=== PATIENT | female | born 1985 | race Caucasian/White ===

== ENCOUNTER 2017-10-17 08:19 | Emergency (ER) | payer OTHER ==
[~2017-10-17] VITALS: Ht 160 cm; Wt 70.8 kg
[2017-10-17 08:22] VITALS: TEMP 36.5; Ht 160 cm; Wt 70.8 kg
[2017-10-17] MEDS ORDERED: ONDANSETRON INJ 2 MG/ML 2 ML VIAL IV STA (08:35)
[2017-10-17] MEDS ORDERED: MoRPHine SULFATE 4 MG/ML 1 ML CARP\\VIAL IV STA (08:35)
[2017-10-17] MEDS ORDERED: SODIUM CHLORIDE 0.9% 1000ML 1,000 ML IV STA (08:35)
[2017-10-17 08:47] LABS: BASO % 0.2 %; BASO ABS # 0.02 K/uL (0-0.2); EOS % 0.5 %; EOS ABS # 0.05 K/uL (0-0.5); HEMATOCRIT 40.9 % (37-47); IG# 0.03 K/uL (0.00-0.02); LYMPH % 10.6 %; LYMPH ABS # 1.17 K/uL (1.2-3.4); MEAN CELL VOLUME 94.9 fL (80-100); MEAN CORPUSCULAR HEMOGLOBIN 32.5 pg (25-34); MEAN CORPUSCULAR HGB CONC 34.2 g/dl (32-36); MEAN PLATELET VOLUME 12.7 fL (7.4-10.4); MONO % 5.4 %; PLATELET COUNT 174 K/uL (130-400); RED CELL DISTRIBUTION WIDTH CV 13.5 % (11.5-14.5); RED CELL DISTRIBUTION WIDTH SD 47.1 fL (36.4-46.3); WHITE BLOOD COUNT 11.07 K/uL (4.8-10.8)
[2017-10-17] MEDS ORDERED: BCPILLS PO (08:59)
[2017-10-17 09:03] LABS: ALBUMIN 3.7 gm/dl (3.4-5.0); CALCIUM 8.8 mg/dl (8.5-10.1); CREATININE 0.81 mg/dl (0.60-1.20); POTASSIUM 3.9 mmol/L (3.5-5.1)
[2017-10-17 09:06] LABS: TOTAL PROTEIN 7.1 gm/dl (6.4-8.2)
[2017-10-17] MEDS ORDERED: OPTIRAY 320 IV PRN (09:30)
--- NOTE | 2017-10-17 09:30 | EMERGENCY ROOM VISIT NOTE ---
History First contact with patient: 08:28 Chief Complaint: ABDOMINAL PAIN Stated Complaint: SHOOTING ABD PAIN Nursing Triage Summary: Pt reports mid abd pain, nausea and diarrhea. States pain started at 0300. History of Present Illness The patient is a 32 year old female who presents to the Emergency Room with complaints of "shooting abdominal pain". The patient states that she awoke today abruptly around 3 AM with epigastric abdominal pain that rates inferiorly. At times the pain as a 9/10. It is also additionally associated with nausea and diarrhea. She denies any chest pain, shortness of breath, recent abdominal surgeries or antibiotic use. She has never had this before. She notes that she is vomiting. She is also menstruating. Review of Systems A complete 10-point Review of Systems was discussed with the patient, with pertinent positives and negatives listed in the History of Present Illness. All remaining Review of Systems questions can be considered negative unless otherwise specified. Past Medical/Surgical History No pertinent Family History No pertinent Social History Smoking Status: Never Smoker Social History: Pt. just moved to the area. Current/Historical Medications Scheduled Control Pills ( Control Pills), 1 TAB PO DAILY Ondasetron Odt (Zofran Odt), 4 MG SL Q6H Scheduled PRN Oxycodone Ir (Roxicodone Ir), 1-2 TAB PO Q4H PRN for Pain Allergies Coded Allergies: No Known Allergies (Unverified , 10/17/17) Physical Exam Vital Signs Date Time Temp Pulse Resp B/P (MAP) Pulse Ox O2 Delivery O2 Flow Rate FiO2 10/17/17 12:06 72 16 122/69 98 10/17/17 10:41 62 18 111/65 99 Room Air 10/17/17 09:10 74 18 125/72 100 Room Air 10/17/17 08:22 36.5 72 18 123/75 97 Room Air Physical Exam VITAL SIGNS - Vital signs and nursing notes were reviewed. Stable. GENERAL - 32-year-old female appearing her stated age who is in no acute distress. Communicates well with provider and answers questions appropriately. SKIN - Without rashes. HEAD - NC/AT. EYES -Sclera anicteric. Palpebral conjunctiva pink and moist with no injection noted. EARS - No deformities of external structures noted on gross examination bilaterally. NOSE - Midline and without cyanosis. No epistaxis or purulent drainage noted. MOUTH/OROPHARYNX - Without perioral cyanosis. LUNGS - Chest wall symmetric without accessory muscle use, intercostals retractions, or central cyanosis. Normal vesicular breath sounds CTA B/L. No wheezes, rales, or rhonchi appreciated. CARDIAC - RRR with S1/S2. No murmur, rubs, or gallops appreciated. ABDOMEN - Abdominal contour normal without pulsations or visible masses. BS normoactive all four quadrants. Marked epigastric abd pain that is also just above the umbilicus. Medical Decision & Procedures ER Provider Diagnostic Interpretation: ABDOMINAL ULTRASOUND, RIGHT UPPER QUADRANT HISTORY: Epigastric and diffuse abd pain. COMPARISON: None. FINDINGS: The liver is sonographically normal. There is no biliary ductal dilatation. The common bile duct measures 3 mm in caliber. A small amount of sludge is noted within the gallbladder. Tiny echogenic foci within the gallbladder may reflect tiny stones. There is trace pericholecystic fluid. Gallbladder wall thickness is at the upper limits of normal. The pancreatic body is normal. The head and tail are obscured. There is no right hydronephrosis. IMPRESSION: 1. Gallbladder sludge and echogenic foci within the gallbladder which may reflect tiny stones. Trace pericholecystic fluid. No sonographic Coon sign. No significant gallbladder wall thickening. 2. No biliary ductal dilatation. Electronically signed by: Truong Mendoza M.D. 10/17/2017 9:57 AM Dictated Date/Time: 10/17/2017 9:53 AM ABDOMEN AND PELVIS CT WITH IV AND ORAL CONTRAST CT DOSE: 388.70 mGy.cm HISTORY: Acute generalized abdominal pain Epigastric and diffuse abd pain TECHNIQUE: Multiaxial CT images of the abdomen and pelvis were performed following the use of intravenous and oral contrast. A dose lowering technique was utilized adhering to the principles of ALARA. COMPARISON STUDY: Right upper quadrant ultrasound of same day. FINDINGS: Mild dependent subsegmental bibasilar atelectasis. There is no pneumatosis or pneumoperitoneum identified. Imaged inferior cardiac chambers are unremarkable. Mild periportal edema, likely secondary to overhydration. Liver appears unremarkable. Trace pericholecystic fluid is again seen with otherwise unremarkable appearance of the gallbladder. Spleen, pancreas and adrenal glands are within normal limits. Kidneys, ureters and urinary bladder are unremarkable. Tampon is noted within the vagina. Uterus and adnexa are unremarkable. Mild free pelvic fluid is seen within the cul-de-sac. Aorta is normal in course and caliber. No bulky adenopathy identified. There is no bowel obstruction identified. The appendix is contrast-filled and appears unremarkable the right lower quadrant. The terminal ileum is unremarkable. Mild wall thickening is noted within a few loops of ileum within the lower abdomen and pelvis, notably as seen on image 298 series 3 within the central mid pelvis. Trace perihepatic ascites. Soft tissues are unremarkable. Bones appear to be intact. IMPRESSION: 1. Mild wall thickening involves several loops of ileum within the lower abdomen and pelvis suggesting infectious or inflammatory enteritis without evidence of bowel obstruction. Trace abdominal pelvic ascites is likely reactive. 2. No evidence of acute appendicitis. 3. Mild periportal edema, likely secondary to overhydration. Electronically signed by: Alfredo Wade M.D. 10/17/2017 10:59 AM Dictated Date/Time: 10/17/2017 10:52 AM Laboratory Results 10/17/17 08:38 Red Blood Count 4.31, Mean Corpuscular Volume 94.9, Mean Corpuscular Hemoglobin 32.5, Mean Corpuscular Hemoglobin Concent 34.2, Mean Platelet Volume 12.7, Neutrophils (%) (Auto) 83.0, Lymphocytes (%) (Auto) 10.6, Monocytes (%) (Auto) 5.4, Eosinophils (%) (Auto) 0.5, Basophils (%) (Auto) 0.2, Neutrophils # (Auto) 9.20, Lymphocytes # (Auto) 1.17, Monocytes # (Auto) 0.60, Eosinophils # (Auto) 0.05, Basophils # (Auto) 0.02 10/17/17 08:38 Test 10/17/17 08:38 10/17/17 10:10 White Blood Count 11.07 K/uL (4.8-10.8) Red Blood Count 4.31 M/uL (4.2-5.4) Hemoglobin 14.0 g/dL (12.0-16.0) Hematocrit 40.9 % (37-47) Mean Corpuscular Volume 94.9 fL (80-100) Mean Corpuscular Hemoglobin 32.5 pg (25-34) Mean Corpuscular Hemoglobin Concent 34.2 g/dl (32-36) Platelet Count 174 K/uL (130-400) Mean Platelet Volume 12.7 fL (7.4-10.4) Neutrophils (%) (Auto) 83.0 % Lymphocytes (%) (Auto) 10.6 % Monocytes (%) (Auto) 5.4 % Eosinophils (%) (Auto) 0.5 % Basophils (%) (Auto) 0.2 % Neutrophils # (Auto) 9.20 K/uL (1.4-6.5) Lymphocytes # (Auto) 1.17 K/uL (1.2-3.4) Monocytes # (Auto) 0.60 K/uL (0.11-0.59) Eosinophils # (Auto) 0.05 K/uL (0-0.5) Basophils # (Auto) 0.02 K/uL (0-0.2) RDW Standard Deviation 47.1 fL (36.4-46.3) RDW Coefficient of Variation 13.5 % (11.5-14.5) Immature Granulocyte % (Auto) 0.3 % Immature Granulocyte # (Auto) 0.03 K/uL (0.00-0.02) Anion Gap 8.0 mmol/L (3-11) Est Creatinine Clear Calc Drug Dose 94.0 ml/min Estimated GFR () 111.4 Estimated GFR (Non- 96.1 BUN/Creatinine Ratio 15.5 (10-20) Calcium Level 8.8 mg/dl (8.5-10.1) Magnesium Level 2.0 mg/dl (1.8-2.4) Total Bilirubin 1.1 mg/dl (0.2-1) Aspartate Amino Transf (AST/SGOT) 14 U/L (15-37) Alanine Aminotransferase (ALT/SGPT) 17 U/L (12-78) Alkaline Phosphatase 40 U/L (45-117) Total Protein 7.1 gm/dl (6.4-8.2) Albumin 3.7 gm/dl (3.4-5.0) Globulin 3.4 gm/dl (2.5-4.0) Albumin/Globulin Ratio 1.1 (0.9-2) Lipase 140 U/L (73-393) Urine Color YELLOW Urine Appearance CLEAR (CLEAR) Urine pH 5.0 (4.5-7.5) Urine Specific Hobbs 1.009 (1.000-1.030) Urine Protein NEG (NEG) Urine Glucose (UA) NEG (NEG) Urine Ketones NEG (NEG) Urine Occult Blood NEG (NEG) Urine Nitrite NEG (NEG) Urine Bilirubin NEG (NEG) Urine Urobilinogen NEG (NEG) Urine Leukocyte Esterase NEG (NEG) Urine Test NEG (NEG) Medications Administered Medications (Trade) Dose Ordered Sig/Nahomy Route Start Time Stop Time Status Last Admin Dose Admin Sodium Chloride 1,000 ml @ 999 mls/hr Q1H1M STAT IV 10/17/17 08:35 10/17/17 09:35 DC 10/17/17 09:06 999 MLS/HR Ondansetron HCl (Zofran Inj) 4 mg NOW STAT IV 10/17/17 08:35 10/17/17 08:38 DC 10/17/17 09:05 4 MG Morphine Sulfate (MoRPHine SULFATE INJ) 4 mg NOW STAT IV 10/17/17 08:35 10/17/17 08:38 DC 10/17/17 09:05 4 MG Oxycodone HCl (Roxicodone Immediate Rel Tab) 5 mg NOW STAT PO 10/17/17 11:26 10/17/17 11:27 DC 10/17/17 11:57 5 MG Medical Decision Patient was seen and evaluated as above. She presents to us today with abdominal pain that is diffuse but worse in the epigastric region. She is nontoxic on exam but does cry with mild palpation of the epigastric region. Right upper quadrant ultrasound was obtained. Gallbladder sludge, and trace pericholecystic fluid was noted. Decision was made to obtain a CT scan of the patient's abdomen and pelvis for further management as the pain was also inferiorly. This reveals no enteritis which is more consistent with the patient 's presentation of diarrhea and abdominal pain with some nausea. It is important note that the pain is not worse in the right upper quadrant. I informed her upon today's findings and she is to follow-up with her family doctor. She notes that she just moved to the area and is attempting to find a family doctor. She is to return with worsening of her symptoms. There is slight leukocytosis of 11.07. No concerning anemia. Patient's metabolic panel reveals no evidence of kidney or liver failure. Her bilirubin is slightly elevated at 1.1. No hepatitis noted. Lipase normal. Urine negative. Urine test negative. The patient was educated upon management, had questions answered prior to discharge, and was discharged home in good condition. While here she was given morphine for pain and Zofran for nausea and she'll be discharged home with oxycodone and Zofran for pain. She is to utilize a bland diet. Case was discussed with the attending physician In the evaluation and treatment of this patient the following differential diagnoses were entertained: Acute abdomen, appendicitis, acute cholecystitis, pancreatitis, gastroenteritis, gastritis, ovarian torsion, among others. Impression Primary Impression: Acute gastroenteritis Departure Information Dispostion Home / Self-Care Condition GOOD Prescriptions Ondasetron Odt (ZOFRAN ODT) 4 Mg Tab 4 MG SL Q6H for Nausea, #15 TAB Prov: Twan Sun PA-C 10/17/17 Oxycodone Ir (Roxicodone Ir) 5 Mg Tab 1-2 TAB PO Q4H Y for Pain, #15 TAB For Initial Treatment Prov: Twan Sun PA-C 10/17/17 Referrals No Doctor, Assigned (PCP) Patient Instructions My [facility] Additional Instructions You have been treated in the Emergency Department your Abdominal Pain. Laboratory results and imaging studies have ruled out any emergent causes for your abdominal pain which would warrant admission or surgery. You have been prescribed Oxy IR to be used for pain control. This is a narcotic medication. You cannot drive or consume alcohol while on this medicine. This medicine should only be used for pain that cannot be controlled with over-the- counter pain medicines. You have been prescribed Zofran to be used for any nausea or vomiting. Take as prescribed. For pain control, you can use the following [id number] medicines - Regular strength (325mg/tab) Tylenol (acetaminophen) 2 tabs every 4-6 hours as needed. Do not exceed 12 tablets in a 24 hour period. Avoid taking more than 3 grams (3000 mg) of Tylenol per day. This includes any other sources of acetaminophen you may take on a regular basis. - Regular strength (200 mg/tab) Advil (ibuprofen) 1-2 tabs every 4-6 hours as needed. Do not exceed a dose of 3200 mg per day. Drink plenty of water and stay well hydrated. As with any trip to the Emergency Department, you should follow-up with your Primary Care Provider from today's visit. (please call insurance card to identity primary care doctors in the area to follow up) Return to the emergency department if your symptoms persist despite treatment plan outlined above or if the following symptoms occur: increased fevers, chills , worsening nausea/vomiting, blood in your stool or urine. ABDOMEN AND PELVIS CT WITH IV AND ORAL CONTRAST CT DOSE: 388.70 mGy.cm HISTORY: Acute generalized abdominal pain Epigastric and diffuse abd pain TECHNIQUE: Multiaxial CT images of the abdomen and pelvis were performed following the use of intravenous and oral contrast. A dose lowering technique was utilized adhering to the principles of ALARA. COMPARISON STUDY: Right upper quadrant ultrasound of same day. FINDINGS: Mild dependent subsegmental bibasilar atelectasis. There is no pneumatosis or pneumoperitoneum identified. Imaged inferior cardiac chambers are unremarkable. Mild periportal edema, likely secondary to overhydration. Liver appears unremarkable. Trace pericholecystic fluid is again seen with otherwise unremarkable appearance of the gallbladder. Spleen, pancreas and adrenal glands are within normal limits. Kidneys, ureters and urinary bladder are unremarkable. Tampon is noted within the vagina. Uterus and adnexa are unremarkable. Mild free pelvic fluid is seen within the cul-de-sac. Aorta is normal in course and caliber. No bulky adenopathy identified. There is no bowel obstruction identified. The appendix is contrast-filled and appears unremarkable the right lower quadrant. The terminal ileum is unremarkable. Mild wall thickening is noted within a few loops of ileum within the lower abdomen and pelvis, notably as seen on image 298 series 3 within the central mid pelvis. Trace perihepatic ascites. Soft tissues are unremarkable. Bones appear to be intact. IMPRESSION: 1. Mild wall thickening involves several loops of ileum within the lower abdomen and pelvis suggesting infectious or inflammatory enteritis without evidence of bowel obstruction. Trace abdominal pelvic ascites is likely reactive. 2. No evidence of acute appendicitis. 3. Mild periportal edema, likely secondary to overhydration. ABDOMINAL ULTRASOUND, RIGHT UPPER QUADRANT HISTORY: Epigastric and diffuse abd pain. COMPARISON: None. FINDINGS: The liver is sonographically normal. There is no biliary ductal dilatation. The common bile duct measures 3 mm in caliber. A small amount of sludge is noted within the gallbladder. Tiny echogenic foci within the gallbladder may reflect tiny stones. There is trace pericholecystic fluid. Gallbladder wall thickness is at the upper limits of normal. The pancreatic body is normal. The head and tail are obscured. There is no right hydronephrosis.
--- NOTE | 2017-10-17 09:58 | DIAGNOSTIC IMAGING REPORT ---
ABDOMINAL ULTRASOUND, RIGHT UPPER QUADRANT HISTORY: Epigastric and diffuse abd pain. COMPARISON: None. FINDINGS: The liver is sonographically normal. There is no biliary ductal dilatation. The common bile duct measures 3 mm in caliber. A small amount of sludge is noted within the gallbladder. Tiny echogenic foci within the gallbladder may reflect tiny stones. There is trace pericholecystic fluid. Gallbladder wall thickness is at the upper limits of normal. The pancreatic body is normal. The head and tail are obscured. There is no right hydronephrosis. IMPRESSION: 1. Gallbladder sludge and echogenic foci within the gallbladder which may reflect tiny stones. Trace pericholecystic fluid. No sonographic Coon sign. No significant gallbladder wall thickening. 2. No biliary ductal dilatation. Electronically signed by: Truong Mendoza M.D. 10/17/2017 9:57 AM Dictated Date/Time: 10/17/2017 9:53 AM
--- NOTE | 2017-10-17 11:00 | DIAGNOSTIC IMAGING REPORT ---
ABDOMEN AND PELVIS CT WITH IV AND ORAL CONTRAST CT DOSE: 388.70 mGy.cm HISTORY: Acute generalized abdominal pain Epigastric and diffuse abd pain TECHNIQUE: Multiaxial CT images of the abdomen and pelvis were performed following the use of intravenous and oral contrast. A dose lowering technique was utilized adhering to the principles of ALARA. COMPARISON STUDY: Right upper quadrant ultrasound of same day. FINDINGS: Mild dependent subsegmental bibasilar atelectasis. There is no pneumatosis or pneumoperitoneum identified. Imaged inferior cardiac chambers are unremarkable. Mild periportal edema, likely secondary to overhydration. Liver appears unremarkable. Trace pericholecystic fluid is again seen with otherwise unremarkable appearance of the gallbladder. Spleen, pancreas and adrenal glands are within normal limits. Kidneys, ureters and urinary bladder are unremarkable. Tampon is noted within the vagina. Uterus and adnexa are unremarkable. Mild free pelvic fluid is seen within the cul-de-sac. Aorta is normal in course and caliber. No bulky adenopathy identified. There is no bowel obstruction identified. The appendix is contrast-filled and appears unremarkable the right lower quadrant. The terminal ileum is unremarkable. Mild wall thickening is noted within a few loops of ileum within the lower abdomen and pelvis, notably as seen on image 298 series 3 within the central mid pelvis. Trace perihepatic ascites. Soft tissues are unremarkable. Bones appear to be intact. IMPRESSION: 1. Mild wall thickening involves several loops of ileum within the lower abdomen and pelvis suggesting infectious or inflammatory enteritis without evidence of bowel obstruction. Trace abdominal pelvic ascites is likely reactive. 2. No evidence of acute appendicitis. 3. Mild periportal edema, likely secondary to overhydration. Electronically signed by: Alfredo Wade M.D. 10/17/2017 10:59 AM Dictated Date/Time: 10/17/2017 10:52 AM
[2017-10-17] MEDS ORDERED: OXYCODONE HCL IR 5 MG TAB (IMMEDIATE RELEASE) PO STA (11:26)
[2017-10-17] MEDS ORDERED: OXYC1TAB3 PO (11:29)
[2017-10-17] MEDS ORDERED: ONDA4TAB10 SL (11:29)
[2017-10-17 12:06] VITALS: BP 122/69; PULSE 72; O2SAT 98
== END 2017-10-17 12:07 | disposition home or self-care (01) ==
LOC: C.EDB 08:21 → C.EDA 12:07
DX: K52.9 Noninfective gastroenteritis and colitis, unspecified (principal); Z79.3 Long term (current) use of hormonal contraceptives

== ENCOUNTER 2019-07-03 07:34 | Inpatient (IN) ==
[2019-07-03] MEDS ORDERED: miSOPROStoL 50 MCG TAB PO ONE (08:49)
[2019-07-03] MEDS ORDERED: PENICILLIN G POTASSIUM 6 MU in DEXTROSE 5% 250 ML IV STA (08:49)
[2019-07-03] MEDS ORDERED: OXYTOCIN 30 UNITS/500 ML BAG IV PRN (08:49)
[2019-07-03 09:04] LABS: Hematocrit (blood only) 36.7 % (37-47); Hemoglobin 12.4 g/dL (12.0-16.0); Mean Corpuscular Hemoglobin 31.2 pg (25-34); Mean Corpuscular Volume 92.2 fL (80-100); Mean Platelet Volume 13.8 fL (7.4-10.4); Platelet Count 155 K/uL (130-400); RDW Coefficient of Variation 13.7 % (11.5-14.5); RDW Standard Deviation 45.8 fL (36.4-46.3); Red Blood Count 3.98 M/uL (4.2-5.4); White Blood Count 12.64 K/uL (4.8-10.8)
[2019-07-03] MEDS: LACTATED RINGER'S 1,000 ML IV PRN (09:13)
[2019-07-03 09:18] LABS: Mean Corpuscular Hgb Conc 33.8 g/dL (32-36)
[2019-07-03] MEDS ORDERED: DINOPROSTONE 10 MG INSERT PV ONE (16:50)
--- NOTE | 2019-07-03 18:52 | Obstetrical Progress Note ---
Date of Service July 03, 2019 Subjective Pt doing well Induction for post dates FHR; CAT1 Ctx 2-4 mins VE ft/50/post/-3 Cervidil placed in vagina Results & Data Vital Signs (Past 12 Hours) Vital Signs Temp Pulse Resp BP 07/03/19 15:03 78 121/68 07/03/19 15:02 37.3 C 20 07/03/19 11:28 36.7 C 66 20 114/63 07/03/19 07:44 37.0 C 88 20 119/67
[2019-07-03] MEDS ORDERED: BUTORPHANOL TARTRATE 1 MG/ML VIAL IV PRN (22:12)
--- NOTE | 2019-07-04 07:25 | Labor Progress Brief Note ---
Date of Service July 04, 2019 Results & Data Vital Signs (Past 12 Hours) Vital Signs Temp Pulse Resp BP 07/04/19 03:27 36.9 C 77 18 110/63 07/03/19 22:55 36.9 C 18 07/03/19 22:36 69 117/64
--- NOTE | 2019-07-04 07:27 | Obstetrical Progress Note ---
Date of Service July 04, 2019 Subjective Pt doing well Induction for post dates FHR; CAT 1 Cts 2-4mins Cervidil removed VE;/-3 EFW; 7-8lbs will start Pitocin augmentation Results & Data Vital Signs (Past 12 Hours) Vital Signs Temp Pulse Resp BP 07/04/19 03:27 36.9 C 77 18 110/63 07/03/19 22:55 36.9 C 18 07/03/19 22:36 69 117/64
[2019-07-04] MEDS ORDERED: OXYTOCIN 30 UNITS/500 ML BAG IV PRN (07:28)
[2019-07-04] MEDS: LACTATED RINGER'S 1,000 ML IV PRN ×3 (08:43→20:07)
[2019-07-04] MEDS ORDERED: BUPIVACAINE 0.25% 30 ML VIAL ONE ×2 (11:33→18:17)
[2019-07-04] MEDS ORDERED: fentaNYL citrate 100 MCG/2 ML VIAL ONE ×2 (11:33→21:46)
[2019-07-04] MEDS ORDERED: ePHEDrine sulfate 50 MG/ML AMP ONE (11:33)
[2019-07-04] MEDS ORDERED: fentaNYL 2MCG/ML ROPIV 1.25MG/ML 100 ML BAG EPI ONE (11:34)
[2019-07-04] MEDS ORDERED: NALOXONE HCL 1 MG in SODIUM CHLORIDE 0.9% 1000ML 1,000 ML IV PRN (11:57)
[2019-07-04] MEDS ORDERED: DiphenhydrAMINE HCL 50 MG/ML VIAL IV PRN (11:57)
[2019-07-04] MEDS ORDERED: NALOXONE HCL 0.4 MG/1 ML VIAL/CARP IV PRN (11:57)
[2019-07-04] MEDS ORDERED: NALBUPHINE HCL INJ 10 MG/ML AMP IV PRN (11:57)
[2019-07-04] MEDS ORDERED: ePHEDrine sulfate 50 MG/ML AMP IV PRN (11:57)
[2019-07-04] MEDS ORDERED: PENICILLIN G POTASSIUM 6 MU in DEXTROSE 5% 250 ML IV STA (12:01)
--- NOTE | 2019-07-04 12:03 | Anesthesiology Consultation ---
Date of Service July 04, 2019 Assessment & Plan Chart Review Chart Review: Patient NOT seen in Pre Admission Testing and Acceptable Risk for Labor Epidural Consults Requested none ASA ASA2 Proposed Anesthesia Anesthesia Type: Labor Epidural and CSE Risk / Benefits Reviewed With: PT / POA / Parent / Guardian, Accepts Plan and Informed Consent Obtained History Height/Weight Height: 5 ft 3 in Weight: 85.275 kg Allergies Allergy/AdvReac Type Severity Reaction Status Date / Time No Known Allergies Allergy Verified 06/14/19 19:22 Medications Home Medications Medication Instructions Recorded Confirmed Last Taken vit-iron fum-folic ac 1 tab PO DAILY 04/23/19 07/03/19 07/02/19 08:00 [ Vitamin] Active Medications Generic Name Dose Route Start Last Admin Trade Name Freq PRN Reason Stop Dose Admin Butorphanol Tartrate 1 mg 07/03/19 22:12 07/03/19 22:26 Stadol IV 08/02/19 22:11 1 mg Q4 PRN Administration Pain Lactated Ringer's 1,000 mls @ 125 mls/hr 07/03/19 08:49 07/04/19 11:28 Lr IV 07/05/19 08:48 999 mls/hr .Q8H PRN Infusion L&D Protocol Protocol Oxytocin 30 units in 500 mls @ 10 mls/hr 07/04/19 07:28 07/04/19 11:20 Pitocin IV 07/06/19 07:27 0.6 units/hr .Q24H PRN 10 mls/hr Labor Induction/Augmentation Titration Protocol 0.6 UNITS/HR NPO Date Last Intake of Fluids: 07/04/19 Time Last Intake of Fluids: 08:00 Date Last Intake of Solids: 07/04/19 Time Last Intake of Solids: 08:00 Past Medical History Medical History 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 [place] teeth removed Exercise / Class Metabolic Activity II 4-5 Yardwork/Stairs/Walk up hill Past Surgical History Surgical History H/O breast surgery H/O knee surgery Past Anesthesia History No Hx of Anesthesia Complications and No Family Hx of Anesthesia Complications History of PONV No Hx of PONV and No Hx of Motion Sickness Social History no chest pain or sob Smoking Status: Never smoker Do You Dip or Chew Tobacco: No Hx Alcohol Use: No Hx Substance Use: No Review of Systems no chest pain or sob Physical Exam Vital Signs Last Vital Signs Temp 37.1 C 07/04/19 07:33 Pulse 95 H 07/04/19 12:00 Resp 20 07/04/19 07:33 BP 156/88 H 07/04/19 12:00 Pulse Ox 97 07/04/19 12:00 ENMT Mouth: no TMJ abnormality Thyromental Distance: > or= 3.5 Finger Breadths Mallampati Class: II Neck normal visual inspection Respiratory normal respiratory effort Auscultation: lungs clear to auscultation bilaterally Cardiovascular Rate/Rhythm: regular rate and regular rhythm Musculoskeletal Spine: normal cervical ROM Neurologic moves all extremities Psychiatric Orientation: alert and oriented x 3 Testing Laboratory Results 07/03/19 08:56
[2019-07-04] MEDS: PENICILLIN G POTASSIUM 3 MU in DEXTROSE 5% 100 ML IV PRN ×2 (16:41→20:48)
[2019-07-04] MEDS: fentaNYL 2MCG/ML ROPIV 1.25MG/ML 100 ML BAG EPI PRN ×2 (16:50→18:25)
[2019-07-04] MEDS ORDERED: Nursing to Pharmacy Communication ONE ×2 (17:00→18:50)
[2019-07-04] MEDS: ONDANSETRON INJ 2 MG/ML 2 ML VIAL IV PRN ×2 (18:01→20:14)
[2019-07-04] MEDS ORDERED: fentaNYL 2MCG/ML ROPIV 1.25MG/ML 100 ML BAG EPI PRN (18:28)
[2019-07-05] MEDS ORDERED: ONDANSETRON INJ 2 MG/ML 2 ML VIAL IV PRN
[2019-07-05] MEDS: PENICILLIN G POTASSIUM 3 MU in DEXTROSE 5% 100 ML IV PRN (00:46)
[2019-07-05] MEDS ORDERED: METHYLERGONOVINE MALEATE 0.2 MG/ML AMP ONE (01:56)
[2019-07-05] MEDS ORDERED: BENZOCAINE 20% AER SPR 82.5 GM CAN EXT PRN (02:08)
[2019-07-05] MEDS ORDERED: DIPHTHERIA/TETANUS/PERTUSSIS 0.5 ML SYR/VIAL IM ONE (02:08)
[2019-07-05] MEDS ORDERED: SUPERCREAM 0.870% 15 GM JAR EXT PRN (02:08)
[2019-07-05] MEDS ORDERED: METHYLERGONOVINE MALEATE 0.2 MG/ML AMP IM ONE (02:08)
[2019-07-05] MEDS ORDERED: OXYTOCIN 30 UNITS/500 ML BAG IV PRN (02:08)
[2019-07-05] MEDS ORDERED: BISACODYL 10 MG SUPP PR PRN (02:08)
[2019-07-05] MEDS ORDERED: HYDROCORTISONE ACETATE 25 MG SUPP PR PRN (02:08)
[2019-07-05] MEDS ORDERED: ACETAMINOPHEN W/CODEINE #3 1 TAB PO PRN (02:08)
[2019-07-05] MEDS ORDERED: OXYCODONE/ACETAMINOPHEN 5mg/325mg TAB PO PRN (02:08)
[2019-07-05] MEDS: IBUPROFEN 600 MG TAB PO PRN ×3 (02:43→21:14)
[2019-07-05] MEDS: ACETAMINOPHEN 325 MG TAB PO PRN ×2 (02:57→09:42)
--- NOTE | 2019-07-05 03:12 | Operative Report ---
DATE OF OPERATION: 07/05/2019 Ms. Julian is a 1, para 1. Blood type is O positive, group B strep positive. She was admitted for induction of labor at 40 weeks 5 days, started out with p.o. Cytotec. Then, she was given a Cervidil tape. Following morning, tape was removed and she was started on Pitocin. Pitocin was increased, so she got good regular contractions. Membranes ruptured spontaneously during the exam. She continued to increase the Pitocin, turned back a little bit towards the end because of some variable decelerations. She eventually pushed out a live female infant via direct occiput anterior position over an intact perineum. Thick meconium was noted at the time of delivery. Infant was suctioned thoroughly through the mouth and the nose. Shoulders were delivered without difficulty. Cord was clamped, cut by the father. Cord blood was taken. With IV Pitocin running, the placenta was removed intact. Membranes were heavily stained with meconium. 0.2 mg of Methergine were given. Uterus contracted nicely. Inspection of the perineum revealed a first-degree laceration. A heavy Vicryl was used to approximate the vaginal mucosa out to beyond the hymenal ring. A deep suture was used to approximate the bulbocavernosus muscle. Following this, hemostasis was good. Sponges were removed. Vag exam including rectovaginal examination revealed no hematoma formation or sponges in the vagina. The patient tolerated the procedure well. Apgars will be deferred to the nurses. I attest to the content of the Intraoperative Record and any orders documented therein. Any exception s are noted below.
[2019-07-05] MEDS: DOCUSATE SODIUM 100 MG CAP PO SCH ×2 (08:28→20:54)
[2019-07-05] MEDS: PRENATAL VITAMIN 1 TAB PO SCH (08:28)
[2019-07-05] MEDS: FERROUS SULFATE 325 MG TAB PO SCH (08:28)
--- NOTE | 2019-07-05 10:28 | Anesthesia Procedure Note ---
Date of Service July 05, 2019 Anesthesia Post Epidural Note Vital Signs Vital Signs: Temp Pulse Resp BP Pulse Ox 36.7 C 73 18 118/73 98 07/05/19 08:00 07/05/19 08:00 07/05/19 08:00 07/05/19 08:00 07/05/19 08:00 Pain Intensity Abdomen: Pain Intensity: 6 Notes Mental Status: alert / awake / arousable Nausea / Vomiting: adequately controlled Pain: adequately controlled Airway Patency, RR, SpO2: stable & adequate BP & HR: stable & adequate Hydration State: stable & adequate Neuraxial Anesthesia: was administered and sensory block is resolving Anesthetic Complications: no major complications apparent and Pt Satisfied with anesthetic care Epidural: Removed without complications and With tip intact
--- NOTE | 2019-07-05 10:34 | Obstetrical Progress Note ---
Date of Service July 05, 2019 Subjective PPD#0 doing well exhausted some nasal congestion Physical Exam Constitutional: WD/WN, vitals as above comfortable no edema neg Yolanda's Fundus firm will continue care as ordered Results & Data Vital Signs (Past 12 Hours) Vital Signs Temp Pulse Pulse Resp BP BP Pulse Ox 07/05/19 08:00 36.7 C 73 18 118/73 98 07/05/19 06:20 36.9 C 18 143/84 H 07/05/19 04:30 36.5 C 18 07/05/19 04:20 66 120/58 L 07/05/19 04:05 62 18 130/66 07/05/19 03:50 71 136/73 07/05/19 03:35 71 16 141/70 H 07/05/19 03:21 74 130/80 07/05/19 03:05 82 16 138/77 07/05/19 02:50 77 18 139/72 07/05/19 02:35 85 18 139/68 07/05/19 02:20 91 H 18 137/67 07/05/19 02:11 98 H 96 07/05/19 02:06 92 H 114/87 96 07/05/19 02:05 36.8 C 20 07/05/19 02:01 101 H 96 07/05/19 01:56 89 139/70 98 07/05/19 01:51 121 H 18 99 07/05/19 01:47 94 H 86 L 07/05/19 01:46 82 98 07/05/19 01:41 85 140/67 98 07/05/19 01:36 92 H 99 07/05/19 01:31 96 H 98 07/05/19 01:30 18 07/05/19 01:28 88 123/72 07/05/19 01:27 119 H 91 07/05/19 01:26 79 97 07/05/19 01:21 97 H 99 07/05/19 01:16 84 99 07/05/19 01:13 107 H 88 L 07/05/19 01:12 81 136/76 07/05/19 01:11 87 99 07/05/19 01:06 83 97 07/05/19 01:03 93 H 92 07/05/19 01:01 79 95 07/05/19 01:00 36.9 C 18 07/05/19 00:56 79 142/63 H 98 07/05/19 00:51 104 H 97 07/05/19 00:47 102 H 93 07/05/19 00:46 89 97 07/05/19 00:41 106 H 130/85 86 L 07/05/19 00:36 79 97 07/05/19 00:31 81 97 07/05/19 00:30 20 07/05/19 00:27 80 121/81 07/05/19 00:26 88 98 07/05/19 00:21 78 97 07/05/19 00:20 104 H 88 L 07/05/19 00:16 107 H 96 07/05/19 00:12 76 140/67 07/05/19 00:11 85 98 07/05/19 00:06 80 97 07/05/19 00:00 107 H 20 92 07/04/19 23:56 73 127/62 07/04/19 23:55 80 98 07/04/19 23:50 80 98 07/04/19 23:45 78 96 07/04/19 23:42 123 H 91 07/04/19 23:41 94 H 124/88 07/04/19 23:40 79 97 07/04/19 23:37 92 H 90 07/04/19 23:35 79 96 07/04/19 23:32 91 H 93 07/04/19 23:30 83 18 94 07/04/19 23:27 78 137/65 07/04/19 23:26 104 H 91 07/04/19 23:25 81 96 07/04/19 23:20 76 96 07/04/19 23:15 81 95 07/04/19 23:13 80 121/61 07/04/19 23:10 89 95 07/04/19 23:07 93 H 92 07/04/19 23:05 90 96 07/04/19 23:00 37.5 C 81 18 95 07/04/19 22:57 72 134/62 07/04/19 22:55 85 94 07/04/19 22:50 91 H 95 07/04/19 22:49 101 H 88 L 07/04/19 22:45 80 20 95 07/04/19 22:43 87 89 L 07/04/19 22:42 79 125/58 L 07/04/19 22:40 96 H 95 07/04/19 22:36 81 91 07/04/19 22:35 91 H 96
[2019-07-05] MEDS ORDERED: PSEUDOEPHEDRINE HCL 30 MG TAB PO PRN (10:39)
[2019-07-05] MEDS ORDERED: PSEUDOEPHEDRINE HCL 30 MG TAB PO STA (10:39)
[2019-07-06 06:40] LABS: Hematocrit (blood only) 31.8 % (37-47); Hemoglobin 10.9 g/dL (12.0-16.0); Mean Corpuscular Hemoglobin 31.5 pg (25-34); Mean Corpuscular Hgb Conc 34.3 g/dL (32-36); Mean Corpuscular Volume 91.9 fL (80-100); Mean Platelet Volume 12.7 fL (7.4-10.4); Platelet Count 138 K/uL (130-400); RDW Standard Deviation 45.9 fL (36.4-46.3); Red Blood Count 3.46 M/uL (4.2-5.4); White Blood Count 21.19 K/uL (4.8-10.8)
[2019-07-06] MEDS: DOCUSATE SODIUM 100 MG CAP PO SCH ×2 (08:36→20:15)
[2019-07-06] MEDS: PRENATAL VITAMIN 1 TAB PO SCH (08:36)
[2019-07-06] MEDS: FERROUS SULFATE 325 MG TAB PO SCH (08:36)
[2019-07-06] MEDS: IBUPROFEN 600 MG TAB PO PRN (08:41)
--- NOTE | 2019-07-06 11:40 | Obstetrical Progress Note ---
Date of Service July 06, 2019 Subjective Patient is seen and examined. She feels well, no complaints. Ambulating without dizziness Voiding without difficulty Tolerating regular diet with out N&V Bleeding is minimal No fever/ chills/ CP/ SOB/ N&V/ Leg pain Breast feeding without problems Vital Signs Temp Pulse Resp BP BP Pulse Ox 07/06/19 08:00 36.7 C 76 18 117/78 98 07/05/19 23:35 36.6 C 76 17 117/69 98 07/05/19 20:50 36.5 C 76 16 111/70 99 07/05/19 15:25 36.5 C 80 18 108/67 97 07/05/19 12:00 36.5 C 81 18 110/69 97 07/06/19 Range/Units 06:29 WBC 21.19 H (4.8-10.8) K/uL RBC 3.46 L (4.2-5.4) M/uL Hgb 10.9 L (12.0-16.0) g/dL Hct 31.8 L (37-47) % MCV 91.9 (80-100) fL MCH 31.5 (25-34) pg MCHC 34.3 (32-36) g/dL RDW Std Deviation 45.9 (36.4-46.3) fL RDW Coeff of Cathryn 14.0 (11.5-14.5) % Plt Count 138 (130-400) K/uL MPV 12.7 H (7.4-10.4) fL PE: General: Alert, orientedx3, NAD Abd: soft, NT, fundus firm, below Umbilicus Perineum intact, Lochia rubra minimal Ext; NT, 2+/2+ pitting edema, homans sign negative AP: 34 yo s/p , ppd# 1 VSS Afebrile doing well Elevated WBCC, no s/s infection Repeat labs in am Continue routine care All questions were answered D/C home tomorrow Results & Data Vital Signs (Past 12 Hours) Vital Signs Temp Pulse Resp BP Pulse Ox 07/06/19 08:00 36.7 C 76 18 117/78 98
[2019-07-06] MEDS ORDERED: MAGNESIUM HYDROXIDE SUSP 30 ML UDC PO ONE (12:03)
[2019-07-06] MEDS ORDERED: BISACODYL 5 MG TABEC PO SCH (20:00)
[2019-07-07] MEDS: IBUPROFEN 600 MG TAB PO PRN ×2 (00:19→08:13)
[2019-07-07 07:12] LABS: Basophils # (auto) 0.04 K/uL (0-0.2); Basophils % (auto) 0.3 %; Eosinophils # (auto) 0.27 K/uL (0-0.5); Eosinophils % (auto) 2.2 %; Hematocrit (blood only) 30.5 % (37-47); Hemoglobin 10.4 g/dL (12.0-16.0); Immature Granulocytes # (auto) 0.06 K/uL (0.00-0.02); Immature Granulocytes % (auto) 0.5 %; Lymphocytes # (auto) 3.46 K/uL (1.2-3.4); Lymphocytes % (auto) 27.6 %; Mean Corpuscular Hemoglobin 31.2 pg (25-34); Mean Corpuscular Hgb Conc 34.1 g/dL (32-36); Mean Corpuscular Volume 91.6 fL (80-100); Mean Platelet Volume 12.6 fL (7.4-10.4); Monocytes # (auto) 0.82 K/uL (0.11-0.59); Monocytes % (auto) 6.5 %; Neutrophils # (auto) 7.88 K/uL (1.4-6.5); Neutrophils % (auto) 62.9 %; Platelet Count 160 K/uL (130-400); RDW Standard Deviation 46.3 fL (36.4-46.3); Red Blood Count 3.33 M/uL (4.2-5.4); White Blood Count 12.53 K/uL (4.8-10.8)
--- NOTE | 2019-07-07 07:53 | Obstetrical Progress Note ---
Date of Service July 07, 2019 Physical Exam Physical Exam: abdomen soft and non tender vaginal bleeding scant to moderate hgb 10.4 no calf tenderness ambulating well Results & Data Vital Signs (Past 12 Hours) Vital Signs Temp Pulse Resp BP 07/07/19 00:25 36.7 C 67 18 107/67
[2019-07-07] MEDS: FERROUS SULFATE 325 MG TAB PO SCH (08:12)
[2019-07-07] MEDS: DOCUSATE SODIUM 100 MG CAP PO SCH (08:12)
[2019-07-07] MEDS: PRENATAL VITAMIN 1 TAB PO SCH (08:12)
== END 2019-07-07 14:28 | disposition home or self-care (01) | DRG 833 ==
LOC: 4S1 07:34 → 4S2 07-05 04:58

== ENCOUNTER 2021-11-13 07:29 | Inpatient (IN) ==
[2021-11-13] MEDS ORDERED: AZITHROMYCIN 500 MG in DEXTROSE 5% 250 ML IV STA (08:05)
[2021-11-13] MEDS ORDERED: NALOXONE HCL 0.08 MG in SYRINGE 1.8 ML IV PRN (08:15)
[2021-11-13] MEDS ORDERED: HYDROmorphone INJ 0.5 MG/0.5 ML SYR IV PRN (08:15)
[2021-11-13] MEDS ORDERED: NALOXONE HCL 0.4 MG/1 ML VIAL/CARP IV PRN (08:15)
[2021-11-13] MEDS ORDERED: diphenhydrAMINE 50 MG/ML VIAL IV PRN (08:15)
[2021-11-13] MEDS ORDERED: NALOXONE HCL 1 MG in SODIUM CHLORIDE 0.9% 1000ML 1,000 ML IV PRN (08:15)
[2021-11-13] MEDS ORDERED: DC INTRASPINAL MORPHINE SCH (08:15)
[2021-11-13] MEDS ORDERED: LACTATED RINGER'S 500 ML IV PRN (08:15)
[2021-11-13] MEDS ORDERED: LACTATED RINGER'S 1,000 ML IV SCH ×2 (08:15→11:16)
[2021-11-13] MEDS ORDERED: ceFAZolin 2000MG 2,000 MG/15 ML SYR IV ONE (08:15)
[2021-11-13] MEDS ORDERED: ePHEDrine sulfate 50 MG/ML AMP IV PRN (08:15)
[2021-11-13] MEDS ORDERED: SODIUM CHLORIDE 0.9% 1000ML 1,000 ML IV SCH (08:15)
[2021-11-13] MEDS ORDERED: NALBUPHINE HCL INJ 10 MG/ML AMP IV PRN (08:15)
[2021-11-13] MEDS ORDERED: NO NARCOTICS OR SEDATIVES SCH (08:15)
[2021-11-13] MEDS ORDERED: MoRPHine SULFATE PF 1 MG/ML 10 ML AMP/VIAL INT SPINAL ONE (08:15)
--- NOTE | 2021-11-13 08:16 | History & Physical Report ---
Date of Service November 13, 2021 Assessment & Plan (1) Breech presentation: (2) Failed external cephalic version: (3) Active labor: Plan: 36 y/o at 38 1/7 wga presents in labor, breech VSS Labor - Pt is breech and laboring, failed ECV, breech confirmed by BSUS again. Will proceed w/ delivery by CS. Discussed indications, risks, benefits, alternatives with risks including infection, bleeding, injury to adjacent structures (bowel, bladder, ureters, blood vessels, nerves, baby), possible need for blood transfusion and/or life saving hysterectomy, VTE. Consent reviewed in detail w/ pt and signed after all questions answered to her satisfaction. Plan for ancef and azithromycin for prophylaxis. Had covid in August History of Present Illness Chief Complaint: Labor, breech Primary Care Provider: Rick Fisher, 36 y/o at 38 1/7 wga w/ HUANG 4/7 presents w/ ctx increasing in frequency and intensity since 4AM. Had attempted version due to breech presentation last evening but this was not successful and was able to be discharged home. Did have some ctx but was not uncomfortable and able to rest until contractions started back up this morning. 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 Other Information That Helps Us Care for You: No Feels Safe at Home: Yes Safety Concerns: Feels Safe At This Time Childhood Exposure to Second-Hand Smoke: No Sexual Activity: has been sexually active within the last 12 months Gender Identity: Female Assistive Devices: None Physical Exam Constitutional: WD/WN, vitals as above Respiratory: normal respiratory effort; no respiratory distress and no labored breathing Genitourinary: OB Exam Abdomen: + breech (confirmed by bsus) Manual OB Exam: + cervical dilation 4 cm, + cervical effacement 70% and + station -2 OB Exam Monitor Tracing: + external FHT monitor used, + external uterine monitor used (q3-4) and + category I (135/mod/+accel/-decel) Results & Data ([facility]) Laboratory Results OB Labs: Hemoglobin 11.7 g/dL (12.0-16.0) L 09/03/21 Hematocrit 36.5 % (37-47) L 09/03/21 Mean Corpuscular Volume 93.3 fL (80-100) 04/22/21 Platelet Count 212 K/uL (130-400) 04/22/21 Glucose 1 Hour 50 gm Load 159 mg/dl (70-130) H 06/11/21 OB Optional Labs: No Data to Display Labs Reviewed: Initial OB Labs (04/23/21) Blood Type & RH A + Antibody Screen negative HCT/HGB 39.0/12.8 Platelets 14.4 Pap Test negative pap/ + hpv (in Sep 2018) Chlamydia negative Gonorrhea negative Rubella reactive RPR non reactive Urine Culture/Screen HBsAg negative HIV negative MCV 97.7 nipt low risk GBS + urine--mln Diagnostic Findings ant plac Coding Level of Care Code None Diagnoses Breech presentation O32.1XX0 Failed external cephalic version O32.9XX0 Active labor
[2021-11-13] MEDS ORDERED: fentaNYL citrate 100 MCG/2 ML VIAL ONE (08:19)
[2021-11-13] MEDS ORDERED: MoRPHine SULFATE PF 1 MG/ML 10 ML AMP/VIAL ONE (08:19)
[2021-11-13] MEDS ORDERED: OXYTOCIN 10 UNITS/ML 10ML VIAL ONE (08:25)
[2021-11-13] MEDS ORDERED: CITRIC ACID/SODIUM CITRATE 15 ML UDC PO SCH (08:30)
--- NOTE | 2021-11-13 08:36 | Anesthesiology Consultation ---
Date of Service November 13, 2021 Assessment & Plan Chart Review Chart Review: Acceptable Risk for Surgery and Patient NOT seen in Pre Admission Testing Consults Requested none ASA ASA2 Proposed Anesthesia Anesthesia Type: MAC Spinal Risk / Benefits Reviewed With: PT / POA / Parent / Guardian, Accepts Plan and Informed Consent Obtained History Height/Weight Height: 5 ft 3 in Weight: 84.822 kg Allergies Allergy/AdvReac Type Severity Reaction Status Date / Time No Known Allergies Allergy Verified 11/12/21 14:06 Medications Home Medications Medication Instructions Recorded Confirmed Last Taken prenat.vits,dangelo,hat-yfvc-hyaqa 1 tab PO DAILY 05/19/21 11/13/21 11/12/21 08:00 NPO Date Last Intake of Fluids: 11/13/21 Time Last Intake of Fluids: 06:00 Date Last Intake of Solids: 11/13/21 Time Last Intake of Solids: 06:00 Past Medical History Medical History (Updated 11/13/21 @ 08:14 by Gisselle Licona MD) 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 Exercise / Class Metabolic Activity II 4-5 Yardwork/Stairs/Walk up hill Past Surgical History Surgical History H/O breast surgery H/O knee surgery [place] teeth removed Past Anesthesia History No Hx of Anesthesia Complications and No Family Hx of Anesthesia Complications History of PONV No Hx of PONV and History of PONV Social History Smoking Status: Never smoker Hx Alcohol Use: No Hx Substance Use: No substance use type: does not use Review of Systems no chest pain or sob Physical Exam Vital Signs Last Vital Signs Temp 37.2 C 11/13/21 08:09 Pulse 92 H 11/13/21 08:30 Resp 20 11/13/21 08:09 BP 135/79 11/13/21 08:30 ENMT Mouth: no TMJ abnormality Thyromental Distance: > or= 3.5 Finger Breadths Mallampati Class: II Neck normal visual inspection Respiratory normal respiratory effort Auscultation: lungs clear to auscultation bilaterally Cardiovascular Rate/Rhythm: regular rate and regular rhythm Musculoskeletal Spine: normal cervical ROM Neurologic moves all extremities Psychiatric Orientation: alert and oriented x 3
[2021-11-13 08:42] LABS: Hematocrit (blood only) 38.9 % (37-47); Mean Corpuscular Volume 92.8 fL (80-100); RDW Coefficient of Variation 15.1 % (11.5-14.5); RDW Standard Deviation 50.9 fL (36.4-46.3); Red Blood Count 4.19 M/uL (4.2-5.4); White Blood Count 16.27 K/uL (4.8-10.8)
[2021-11-13] MEDS ORDERED: PHENYLEPHRINE 100MCG/ML 5ML SYR ONE (08:56)
[2021-11-13 08:59] LABS: Mean Corpuscular Hgb Conc 33.4 g/dL (32-36); Platelet Count 141 K/uL (130-400); Platelet Estimate Normal (Normal)
[2021-11-13] MEDS ORDERED: ONDANSETRON INJ 2 MG/ML 2 ML VIAL ONE (09:15)
--- NOTE | 2021-11-13 10:10 | Operative Report ---
PG Post Operative Report Pre & Post Diagnosis Operation Date: 11/13/21 08:45 Pre-Op Diagnosis: Single Intrauterine at 38 weeks;Breech presentation;Labor Post-Op Diagnosis: Same; Delivery of a live female child at 0911 I identified the patient and participated in the time-out.: Yes Procedure Operation Date: 11/13/21 08:45 Actual Procedures p Primary Low Transverse Section in LD(Bilateral) - Gisselle Licona MD Surgeon Gisselle Licona MD Voltage Tester LIZA Gonzáles Estimated Blood Loss 600 Findings Consistent with Post-Op Diagnosis Normal appearing uterus, bilateral fallopian tubes and ovaries. Viable female with APGARs of 8 and 9 at 1 and 5 minutes, respectively. Specimens Cord blood Drains Granados draining clear urine Anesthesia Type Spinal Complications none Disposition Accompanied Patient To Recovery: Yes Disposition: L&D Indications 36 y/o at 38 1/7 wga presented this morning with contractions increasing in frequency and intensity. Of note, had unsuccessful version for breech presentation last evening. She was checked and found to be 4cm and luzma regularly. Given breech presentation and labor, recommendation was for delivery Description of Procedure The patient was taken to the operating room after consents were ensured. The patient was properly identified. Spinal anesthesia was obtained without difficulty. The patient was placed in a dorsal supine position with left lateral tilt, then prepped and draped in normal sterile fashion. Surgical time out was performed. Antibiotics were given for prophylaxis. Anesthesia was tested to ensure adequate surgical levels. Pfannenstiel skin incision was performed and carried down to the underlying fascia with a knife. The fascia was then nicked in the midline and extended laterally with pickups and Marino scissors. Superior portion of the fascia was grasped with Kochers x2 and elevated off the underlying rectus muscles using blunt dissection. Inferior portion of the fascia was then grasped with Jo clamps x2 and also elevated off the underlying muscles with blunt dissection. Midline was identified. The peritoneum was then entered and extended to provide adequate room for delivery of baby. The hand was inserted into the abdomen, uterus was noted to be clear of adhesions. Bladder blade was inserted, bladder flap was created in the usual fashion. A low transverse uterine incision was made in the uterus and extended bluntly in a superior to inferior fashion. Amniotomy was made with clear fluid at the time of rupture. breech was grasped and elevated through the hysterotomy and legs delivered spontaneously. Moist blue towel was wrapped around torso and fundal pressure applied to deliver baby to level of scapula. Arms were swept across the chest atraumatically and delivered. head then delivered with MSV maneuver atraumatically. The cord was double clamped and cut, baby was handed off to awaiting pediatrics staff. Cord segment and blood were obtained. Placenta was then expressed from the uterus. The uterus was exteriorized. Several passes were made inside the uterus to remove the remaining membranes. Attention was then turned to the hysterotomy, which was then closed with a running locked suture of 0 Vicryl on a CTX needle. An imbricating layer was then performed using 0-Monocryl. There was noted to be good hemostasis. The posterior cul-de-sac was then inspected and cleaned of clot and debris. The hysterotomy was again inspected and noted to be hemostatic. The uterus was returned to the abdomen. The right and left pericolic gutters were cleaned of all clot and debris. The hysterotomy was again noted to be hemostatic. Space of Retzius was noted to be hemostatic. The fascia was then closed with a running suture of 0 Vicryl on a CT1 needle. Subcutaneous tissue was copiously irrigated and noted to be hemostatic. Subcutaneous tissue was re-approximated using 2-0 plain gut. The skin was then closed with a running suture of 3-0 Monocryl in a subcuticular fashion. At termination of the procedure, the fundal pressure was applied and a moderate amount of lochia was expressed. Pressure dressing was applied to the patient. She tolerated the procedure well. All sponge, needle, instrument counts were correct x 2. I attest to the content of the Intraoperative Record and any orders documented therein. Any exceptions are noted below. OB Procedure Charges 32091
[2021-11-13] MEDS ORDERED: OXYTOCIN 20 UNITS in LACTATED RINGER'S 1,000 ML IV SCH (11:16)
[2021-11-13] MEDS ORDERED: HYDROCORTISONE ACETATE 25 MG SUPP PR PRN (11:16)
[2021-11-13] MEDS ORDERED: DIPHTHERIA/TETANUS/PERTUSSIS 0.5 ML SYR/VIAL IM ONE (11:16)
[2021-11-13] MEDS ORDERED: BENZOCAINE 20% AER SPR 82.5 GM CAN EXT PRN (11:16)
[2021-11-13] MEDS ORDERED: MAGNESIUM HYDROXIDE SUSP 30 ML UDC PO PRN (11:16)
[2021-11-13] MEDS ORDERED: ONDANSETRON INJ 2 MG/ML 2 ML VIAL IV PRN (11:16)
[2021-11-13] MEDS ORDERED: SENNA 8.6 MG TAB PO PRN (11:16)
[2021-11-13] MEDS: KETOROLAC 30 MG/ML VIAL IV PRN ×2 (12:28→20:01)
--- NOTE | 2021-11-13 12:28 | Anesthesiology Progress Note ---
Date of Service November 13, 2021 Anesthesia Post Procedure Vital Signs Vital Signs: Temp Pulse Resp BP Pulse Ox 11/13/21 12:27 70 100 11/13/21 12:22 62 100 11/13/21 12:17 65 100 11/13/21 12:12 71 100 11/13/21 12:07 71 100 11/13/21 12:05 68 129/81 11/13/21 12:02 68 100 11/13/21 11:57 76 99 11/13/21 11:52 64 99 11/13/21 11:47 68 98 11/13/21 11:42 66 97 11/13/21 11:37 67 98 11/13/21 11:35 70 122/70 11/13/21 11:33 36.9 C 18 11/13/21 11:32 66 97 11/13/21 11:27 71 97 11/13/21 11:22 68 97 11/13/21 11:17 67 97 11/13/21 11:12 65 97 11/13/21 11:07 64 97 11/13/21 11:03 68 18 122/70 11/13/21 11:02 68 96 11/13/21 10:57 65 96 11/13/21 10:53 69 16 119/71 11/13/21 10:52 67 95 11/13/21 10:47 67 96 11/13/21 10:44 70 125/73 11/13/21 10:43 18 11/13/21 10:42 75 97 11/13/21 10:35 70 96 11/13/21 10:33 69 16 103/55 L 11/13/21 10:30 78 97 11/13/21 10:25 75 97 11/13/21 10:23 76 18 97/53 L 11/13/21 10:20 64 96 11/13/21 10:15 72 99 11/13/21 10:13 68 18 98/57 L 11/13/21 10:10 67 100 11/13/21 10:09 68 93 11/13/21 10:05 67 98 11/13/21 10:01 68 99/56 L 11/13/21 10:00 36.5 C 73 18 97 11/13/21 08:39 86 100 11/13/21 08:34 100 H 98 11/13/21 08:33 100 H 90 03/25/22 08:30 92 H 135/79 11/13/21 08:09 37.2 C 20 Transfer of Care Handoff Completed per policy Notes Mental Status: alert / awake / arousable Patient Amnestic to Procedure: Yes Nausea / Vomiting: adequately controlled Pain: adequately controlled Airway Patency, RR, SpO2: stable & adequate BP & HR: stable & adequate Hydration State: stable & adequate Neuraxial Anesthesia: was administered and sensory block is resolving Anesthetic Complications: no major complications apparent and Pt Satisfied with anesthetic care
[2021-11-13] MEDS ORDERED: ACETAMINOPHEN 1,000 MG/100 ML VIAL IV STA (15:16)
[2021-11-13] MEDS: SIMETHICONE 80 MG CHEW PO SCH ×3 (16:12→20:01)
[2021-11-13] MEDS: DOCUSATE SODIUM 100 MG CAP PO SCH (20:01)
[2021-11-14] MEDS ORDERED: KETOROLAC 30 MG/ML VIAL IV PRN (02:16)
[2021-11-14] MEDS ORDERED: PROMETHAZINE HCL 25 MG in SODIUM CHLORIDE 0.9% 50 ML IV PRN (02:16)
[2021-11-14] MEDS ORDERED: diphenhydrAMINE Capsule 25 MG CAP PO PRN (02:16)
[2021-11-14] MEDS ORDERED: diphenhydrAMINE 50 MG/ML VIAL IV PRN (02:16)
[2021-11-14] MEDS: oxyCODONE/ACETAMINOPHEN 5mg/325mg TAB PO PRN ×5 (03:17→20:56)
[2021-11-14] MEDS: IBUPROFEN 600 MG TAB PO PRN ×5 (03:18→20:57)
--- NOTE | 2021-11-14 07:11 | Obstetrical Progress Note ---
Date of Service <Christin Pollock MD - Last Filed: 11/14/21 07:11> November 14, 2021 Assessment & Plan <Christin Pollock MD - Last Filed: 11/14/21 07:11> (1) Encounter for care and examination after delivery: POD 1: stable, routine postoperative management * RI, Rh+, GBS+ * patient voiding, ambulating without difficulty * pain well controlled on analgesia * tolerating regular diet * * observe on L&D floor today * anticipate d/c tomorrow <Amanda Champion MD, FACOG - Last Filed: 11/14/21 08:03> (1) Encounter for care and examination after delivery: Subjective <Christin Pollock MD - Last Filed: 11/14/21 07:11> Milady is a 36 y/o who is POD 1 following for breech presentation at 38.1 WGA. She reports feeling well overall this morning. Moderate cramping pain well managed on analgesics. Voiding well. Tolerating meals overnight and able to ambulate on her own. + passing gas. Bleeding is li ghter this morning. Currently . Review of Systems Denies fever, chills, sweats Denies shortness of breath, difficulty breathing, chest pain, palpitations, chest pressure. Denies breast pain. Denies dysuria. Denies headache or changes in vision. Physical Exam <Christin Pollock MD - Last Filed: 11/14/21 07:11> General: Alert, oriented. No acute distress. Cardiac: Regular rate and rhythm, no murmurs/rubs/gallops. Respiratory: Clear to auscultation bilaterally a/p, no wheezes/rales/rhonchi. No increased work of breathing. Symmetrical chest rise. No respiratory distress. Abdomen: Soft, nontender, nondistended. Bowel sounds present. Uterus: Uterine fundus firm, palpable at the umbilicus. Surgical scar clean and healing well. Lower Extremities: No lower extremity edema or swelling. No deep calf pain. Yolanda's negative bilaterally. Results & Data ([facility]) <Christin Pollock MD - Last Filed: 11/14/21 07:11> Vital Signs (Past 12 Hours) Vital Signs Temp Pulse Resp BP Pulse Ox 11/14/21 03:00 37.2 C 75 16 104/65 98 11/14/21 01:25 16 97 11/14/21 00:10 16 96 11/13/21 23:00 36.8 C 73 16 102/64 97 11/13/21 22:05 16 97 11/13/21 21:30 16 95 11/13/21 20:30 16 97 11/13/21 19:40 37.0 C 77 16 114/72 97 <Amanda Champion MD, FACOG - Last Filed: 11/14/21 08:03> Co-Signing Physician Notes Resident Physician Supervision Note: I interviewed and examined the patient. Discussed with Dr. Pollock and agree with findings and plan as documented in the note. Any exceptions or clarifications are listed here: doing well. Routine day one care. Documented By: Amanda Champion MD, FACOG Resident Activity Tracking <Christin Pollock MD - Last Filed: 11/14/21 07:11> Resident Involvement: Resident Care Provided Care Provided: OB Delivery
[2021-11-14 07:23] LABS: Mean Corpuscular Hgb Conc 33.1 g/dL (32-36)
[2021-11-14 07:39] LABS: Hematocrit (blood only) 35.9 % (37-47); Hemoglobin 11.9 g/dL (12.0-16.0); Mean Corpuscular Hemoglobin 30.8 pg (25-34); RDW Coefficient of Variation 15.4 % (11.5-14.5); RDW Standard Deviation 51.9 fL (36.4-46.3); Red Blood Count 3.86 M/uL (4.2-5.4); White Blood Count 16.04 K/uL (4.8-10.8)
[2021-11-14 07:52] LABS: Mean Platelet Volume 14.4 fL (7.4-10.4); Platelet Count 138 K/uL (130-400)
[2021-11-14 07:53] LABS: Basophils # (auto) 0.02 K/uL (0-0.2); Basophils % (auto) 0.1 %; Eosinophils % (auto) 0.6 %; Immature Granulocytes # (auto) 0.04 K/uL (0.00-0.02); Immature Granulocytes % (auto) 0.2 %; Monocytes # (auto) 0.89 K/uL (0.11-0.59); Monocytes % (auto) 5.5 %; Neutrophils # (auto) 12.59 K/uL (1.4-6.5); Neutrophils % (auto) 78.6 %; Platelet Estimate Decreased (Normal)
[2021-11-14] MEDS: PRENATAL VITAMIN 1 TAB PO SCH (07:57)
[2021-11-14] MEDS: DOCUSATE SODIUM 100 MG CAP PO SCH ×2 (07:57→20:53)
[2021-11-14] MEDS: SIMETHICONE 80 MG CHEW PO SCH ×4 (07:57→20:53)
[2021-11-14] MEDS: FERROUS SULFATE 325 MG TAB PO SCH (07:57)
[2021-11-14] MEDS ORDERED: bisacodyL 5 MG TABEC PO SCH (20:00)
[2021-11-15] MEDS: IBUPROFEN 600 MG TAB PO PRN ×3 (02:36→12:18)
[2021-11-15] MEDS: oxyCODONE/ACETAMINOPHEN 5mg/325mg TAB PO PRN ×3 (02:36→12:17)
[2021-11-15 06:38] LABS: Hematocrit (blood only) 33.8 % (37-47); Hemoglobin 11.1 g/dL (12.0-16.0)
--- NOTE | 2021-11-15 07:51 | Obstetrical Progress Note ---
Date of Service November 15, 2021 Assessment & Plan (1) Encounter for care and examination after delivery: 36 yo POD2 from [facility] for breech/labor, doing well -Meeting all pp milestones -A+/rubella immune/ -will order abd binder to help with incision pain w/ movement, medication does help. Discussed anticipated pain, pain regimens. Discussed abd binder, will order and does have one at home from a friend as well -f/u 6 weeks for appt, instructions reviewed Subjective Ambulation: ambulating normally Voiding: no voiding problems Passing Gas:: Yes Diet Tolerance:: regular diet Lochia:: Small Feeding Type:: breast feeding Pain managed with medication, pretty sore around incision Review of Systems Denies fevers, chills, n/v, PRADO, CP, SOB Physical Exam Constitutional WD/WN, vitals as above no acute distress Respiratory normal respiratory effort, lungs clear to auscultation Cardiovascular RRR, no murmur, no edema Gastrointestinal (Abdomen) Percussion/Palpation: abdomen soft; abdomen nontender fundus firm at umbilicus and NT incision c/d/i Musculoskeletal BLE symmetric, nonerythematous, nontender Results & Data ([place]) Vital Signs (Past 12 Hours) Vital Signs Temp Pulse Resp BP 11/15/21 00:01 98.1 F 68 18 107/68
[2021-11-15] MEDS: PRENATAL VITAMIN 1 TAB PO SCH (08:23)
[2021-11-15] MEDS: SIMETHICONE 80 MG CHEW PO SCH ×2 (08:23→12:19)
[2021-11-15] MEDS: FERROUS SULFATE 325 MG TAB PO SCH (08:23)
[2021-11-15] MEDS: DOCUSATE SODIUM 100 MG CAP PO SCH (08:23)
[2021-11-15] MEDS ORDERED: bisacodyL 10 MG SUPP PR PRN (09:55)
--- NOTE | 2021-11-16 13:13 | Discharge Summary ---
Date of Service November 16, 2021 Admission HPI Per Admitting Provider 36 y/o at 38 1/7 wga w/ HUANG 4/7 presents w/ ctx increasing in frequency and intensity since 4AM. Had attempted version due to breech presentation last evening but this was not successful and was able to be discharged home. Did have some ctx but was not uncomfortable and able to rest until contractions started back up this morning. +FM; denies LOF, VB PNI: Breech AMA GBS+ urine needs pp pap G1 2018 at 40 wks G2 current q28d cycles 09/2018 neg cyto/HPV+ denies hx STIs Admission Exam (Per Admitting) Constitutional WD/WN, vitals as above no acute distress Respiratory normal respiratory effort, lungs clear to auscultation normal respiratory effort; no respiratory distress and no labored breathing Cardiovascular RRR, no murmur, no edema Gastrointestinal (Abdomen) Percussion/Palpation: abdomen soft; abdomen nontender Genitourinary OB Exam Abdomen: + breech (confirmed by bsus) Manual OB Exam: + cervical dilation + 4 cm, + cervical effacement + 70% and + station + -2 OB Exam Monitor Tracing: + external FHT monitor used, + external uterine monitor used (q3-4) and + category I (135/mod/+accel/-decel) Discharge Data Consultations 11/13/21 08:05 Consult Anesthesiology Stat Procedures Performed Operation Date: 11/13/21 08:45 Actual Procedures p Section in LD(Bilateral) - Gisselle Licona MD Hospital Course (1) Encounter for care and examination after delivery: See operative report for delivery details. Postoperatively, the pt did well and discharged home on POD2 Coding Level of Care Code None Diagnoses Encounter for care and examination after delivery Z39.2
== END 2021-11-15 14:00 | disposition home or self-care (01) | DRG 788 ==
LOC: OPB 07:29 → 4S1 07:31 → 4E2 15:30